=== PATIENT | male | born 1965 | race American Indian/Alaskan Native ===

== ENCOUNTER 2017-06-28 12:25 | Emergency (ER) | payer SELFPAY ==
[2017-06-28 12:59] VITALS: BP 140/94
[2017-06-28] MEDS ORDERED: NACL 0.9% 1000 ML 1,000 ML IV ONE (13:53)
[2017-06-28] MEDS ORDERED: PEPCID IV ONE (13:53)
[2017-06-28] MEDS ORDERED: BENADRYL IV ONE (13:53)
--- NOTE | 2017-06-28 14:01 | Emergency Department Report ---
- General Chief complaint: Skin Rash Stated complaint: POSSIBLE ALLERGIC REACTION Time Seen by Provider: 06/28/17 13:07 Source: patient Mode of arrival: Ambulatory Limitations: No Limitations - History of Present Illness Initial comments: This is a 52-year-old male nontoxic, well nourished in appearance, no acute signs of distress presents to the ED with c/o of multiple pruritic scaby rash 1 week. He stated last week he saw a bedbug and killed and that has been increasing and rash. Patient presents with multiple scaby rash with multiple non scaby rashes. Patient describes rash as pruritic. Denies any fever, chills , headache, shortness of breathe, numbness, tingling, stiff neck. Patient denies any sick contact. Denies any drug allergies or PMH. complaint: rash -: week(s) (1) Location: generalized Severity: mild Severity scale (0 -10): 8 Quality: other (itching) Consistency: constant Improves with: none Worsens with: none Context: none Associated symptoms: denies other symptoms Treatments Prior to Arrival: none - Related Data Previous Rx's Medication Instructions Recorded Last Taken Type Triamcinolone Aceton 0.1% (Nf) 1 applic TP BID #1 tube 06/28/17 Unknown Rx [Kenalog (NF)] Allergies Allergy/AdvReac Type Severity Reaction Status Date / Time No Known Allergies Allergy Verified 06/28/17 12:58 Abscess Boil HPI - HPI Chief Complaint: Skin Rash Stated Complaint: POSSIBLE ALLERGIC REACTION Time Seen by Provider: 06/28/17 13:07 Home Medications: Previous Rx's Medication Instructions Recorded Last Taken Type Triamcinolone Aceton 0.1% (Nf) 1 applic TP BID #1 tube 06/28/17 Unknown Rx [Kenalog (NF)] Allergies/Adverse Reactions: Allergies Allergy/AdvReac Type Severity Reaction Status Date / Time No Known Allergies Allergy Verified 06/28/17 12:58 ED Review of Systems ROS: Stated complaint: POSSIBLE ALLERGIC REACTION Other details as noted in HPI Constitutional: denies: chills, fever Eyes: denies: eye pain, eye discharge, vision change ENT: denies: ear pain, throat pain Respiratory: denies: cough, shortness of breath, wheezing Cardiovascular: denies: chest pain, palpitations Endocrine: no symptoms reported Gastrointestinal: denies: abdominal pain, nausea, diarrhea Genitourinary: denies: urgency, dysuria Musculoskeletal: denies: back pain, joint swelling, arthralgia Skin: rash. denies: lesions Neurological: denies: headache, weakness, paresthesias Psychiatric: denies: anxiety, depression Hematological/Lymphatic: denies: easy bleeding, easy bruising ED Past Medical Hx - Past Medical History Previous Medical History?: No - Surgical History Past Surgical History?: No - Social History Smoking Status: Current Every Day Smoker Substance Use Type: Alcohol - Medications Home Medications: Home Medications Medication Instructions Recorded Confirmed Last Taken Type Triamcinolone Aceton 0.1% (Nf) 1 applic TP BID #1 tube 06/28/17 Unknown Rx [Kenalog (NF)] ED Physical Exam - General Limitations: No Limitations General appearance: alert, in no apparent distress - Head Head exam: Present: atraumatic, normocephalic - Eye Eye exam: Present: normal appearance, PERRL, EOMI Pupils: Present: normal accommodation - ENT ENT exam: Present: normal exam, normal orophraynx, mucous membranes moist, TM's normal bilaterally, normal external ear exam - Neck Neck exam: Present: normal inspection, full ROM. Absent: tenderness, meningismus, lymphadenopathy, thyromegaly - Respiratory Respiratory exam: Present: normal lung sounds bilaterally. Absent: respiratory distress, wheezes, rales, rhonchi, stridor, chest wall tenderness, accessory muscle use, decreased breath sounds, prolonged expiratory - Cardiovascular Cardiovascular Exam: Present: regular rate, normal rhythm, normal heart sounds. Absent: bradycardia, tachycardia, irregular rhythm, systolic murmur, diastolic murmur, rubs, gallop - GI/Abdominal GI/Abdominal exam: Present: soft, normal bowel sounds. Absent: distended, tenderness, guarding, rebound, rigid, diminished bowel sounds - Rectal Rectal exam: Present: deferred - Extremities Exam Extremities exam: Present: normal inspection, full ROM, normal capillary refill. Absent: tenderness, pedal edema, joint swelling, calf tenderness - Back Exam Back exam: Present: normal inspection, full ROM. Absent: tenderness, CVA tenderness (R), CVA tenderness (L), muscle spasm, paraspinal tenderness, vertebral tenderness, rash noted - Neurological Exam Neurological exam: Present: alert, oriented X3, CN II-XII intact, normal gait, reflexes normal - Psychiatric Psychiatric exam: Present: normal affect, normal mood - Skin Skin exam: Present: warm, dry, intact, normal color, rash, erythema - Expanded Skin Exam Expanded Type of lesion: Present: bite/sting Distribution of rash: generalized Description of rash: Present: erythematous, papular, other (multiple erythematous papules on the trunk with a central hemorrhagic punctum with some old crusting noted. ) ED Course Vital Signs 06/28/17 12:56 Temperature 98.7 F Pulse Rate 64 Respiratory 16 Rate Blood Pressure 140/94 O2 Sat by Pulse 100 Oximetry - Reevaluation(s) Reevaluation #1: 06/28/17 14:06 Patient is speaking in full sentences with no signs of distress noted. ED Medical Decision Making - Medical Decision Making This is a 52-year-old male that presents with bed bug bites. Patient was examined by me and patient is stable. Patient recevied Normal saline 1L with Pepcid, Solu-Medrol, and Benadryl IV for pruritic rash and patient was instructed not to operate any machinery after discharged as to drowsiness with Benadryl and patient stated his family member will drive the patient home at d/ c. Patient is d/c with triamcinolone acetonide 0.1% cream at d/c. Patient was instrcuted to maintain good hygine and avoid scartching to prevent infection. He was instructed to observe symptoms of infection such as cellulitis and return to the ED if present as soon as possible for proper antibiotics. Patient received [employer] education on bedbugs and what to do at home (https:// [email or web address]_link). Patient was instructed to Follow-up with a primary care doctor in 3-5 days or if symptoms worsen and continue return to emergency room as soon as possible. At time time of discharge, the patient does not seem toxic or ill in appearance. No acute signs of distress noted. Patient agrees to discharge treatment plan of care. No further questions noted by the patient. Critical care attestation.: If time is entered above; I have spent that time in minutes in the direct care of this critically ill patient, excluding procedure time. ED Disposition Clinical Impression: Bed bug bite Qualifiers: Encounter type: initial encounter Qualified Code(s): W57.XXXA - Bitten or stung by nonvenomous insect and other nonvenomous arthropods, initial encounter Disposition: DC-01 TO HOME OR SELFCARE Is pt being admited?: No Does the pt Need Aspirin: No Condition: Stable Instructions: Insect Bite or Sting (ED), Triamcinolone (On the skin) Additional Instructions: Follow-up with a primary care doctor in 3-5 days or if symptoms worsen and continue return to emergency room as soon as possible. Prescriptions: Triamcinolone Aceton 0.1% (Nf) [Kenalog (NF)] 1 applic TP BID #1 tube Referrals: PRIMARY CARE, [Primary Care Provider] - 3-5 Days RAISA URIAS MD [Staff Physician] - 3-5 Days [facility] [Outside] - 3-5 Days [facility] [Outside] - 3-5 Days Forms: Work/School Release Form(ED)
== END 2017-06-28 15:27 | disposition home or self-care (01) ==
LOC: ED 12:25
DX: R21 Rash and other nonspecific skin eruption (principal); L29.9 Pruritus, unspecified
CPT/HCPCS: 96361; 96374; 96375; 99282; J1200; J2930; J7030

== ENCOUNTER 2019-03-20 11:49 | Emergency (ER) | payer OTHER ==
--- NOTE | 2019-03-20 12:09 | Event Note ---
ED Screening Note Date of service: 03/20/19 Time: 12:08 ED Screening Note: 54 y/o male comes in blood on toilet paper. Never follow up with a GI. Was diagnosed with hemorrhoid was given annusol. This initial assessment/diagnostic orders/clinical plan/treatment(s) is/are subject to change based on patients health status, clinical progression and re- assessment by fellow clinical providers in the ED. Further treatment and workup at subsequent clinical providers discretion. Patient/guardian urged not to elope from the ED as their condition may be serious if not clinically assessed and managed. Initial orders include:
[2019-03-20 12:15] VITALS: BP 156/95
[2019-03-20 13:47] LABS: Basophils # (Auto) 0.1 K/mm3 (0.0-0.1); Basophils % (Auto) 0.9 % (0.0-1.8); Eosinophils # (Auto) 0.2 K/mm3 (0.0-0.4); Eosinophils % (Auto) 2.1 % (0.0-4.3); Hematocrit 48.9 % (35.5-45.6); Hemoglobin 16.7 gm/dl (11.8-15.2); Lymphocytes # (Auto) 1.6 K/mm3 (1.2-5.4); Lymphocytes % (Auto) 21.5 % (13.4-35.0); Mean Corpuscular HGB Conc 34 % (32-34); Mean Corpuscular Volume 89 fl (84-94); Monocytes # (Auto) 0.7 K/mm3 (0.0-0.8); Platelet Count 256 K/mm3 (140-440); Red Blood Count 5.51 M/mm3 (3.65-5.03); Red Cell Distribution Width 14.2 % (13.2-15.2)
[2019-03-20 14:09] LABS: INR 0.91 (0.87-1.13); Partial Thromboplastin Time 26.3 Sec. (24.2-36.6)
[2019-03-20 14:11] LABS: Alanine Aminotransferase 30 units/L (7-56); Albumin 4.3 g/dL (3.9-5); BUN/Creatinine Ratio 19; Blood Urea Nitrogen 17 mg/dL (9-20); Calcium 9.4 mg/dL (8.4-10.2); Hemolysis Index 21
--- NOTE | 2019-03-20 14:19 | Emergency Department Report ---
ED GI Bleed HPI - General Chief complaint: GI Bleed Stated complaint: BLOOD IN STOOL Time Seen by Provider: 03/20/19 12:07 Source: patient Mode of arrival: Ambulatory Limitations: No Limitations - History of Present Illness Initial comments: Patient is 54 years old male with no significant past medical history. Patient presented to the ER complaining of blood on toilet paper when he used the bathroom. Patient stated the symptoms started to 6 month ago. He was told that he has a hemorrhoid. Patient denied any loss of weight, no anoxia, nausea vom iting. MD complaint: blood on toilet paper -: month(s) (6) Radiation: none - Related Data Previous Rx's Medication Instructions Recorded Last Taken Type Triamcinolone Aceton 0.1% (Nf) 1 applic TP BID #1 tube 06/28/17 Unknown Rx [Kenalog (NF)] Amoxicillin/K Clav Tab [Augmentin 1 tab PO Q12HR #20 tab 07/08/18 Unknown Rx 875MG TAB] Cetirizine HCl [ZyrTEC] 10 mg PO QAM 14 Days #14 capsule 07/08/18 Unknown Rx Fluticasone [Flonase] 1 spray NS QDAY 14 Days #1 bottle 07/08/18 Unknown Rx Ibuprofen [Motrin] 800 mg PO Q8HR PRN #15 tablet 07/08/18 Unknown Rx guaiFENesin/CODEINE [Robitussin AC] 10 ml PO QHS PRN #70 oral.liqd 07/08/18 Unknown Rx ALBUTEROL Inhaler (OR & NICU) 1 puff IH Q4-6H PRN #1 inha 08/02/18 Unknown Rx [ProAir HFA Inhaler] Benzonatate [Tessalon Perles] 100 mg PO Q8HR #20 capsule 08/02/18 Unknown Rx Montelukast [Singulair] 10 mg PO QPM #14 tablet 08/02/18 Unknown Rx predniSONE [Deltasone] 50 mg PO QDAY #5 tab 08/02/18 Unknown Rx Hydrocortisone [Anucort-HC SUPPOS] 25 mg RC BID #10 supp.rect 12/04/18 Unknown Rx Allergies Allergy/AdvReac Type Severity Reaction Status Date / Time shellfish derived Allergy Itching Verified 07/08/18 13:01 ED Review of Systems ROS: Stated complaint: BLOOD IN STOOL Other details as noted in HPI Comment: All other systems reviewed and negative Constitutional: denies: chills, fever Respiratory: denies: cough, shortness of breath, SOB with exertion Gastrointestinal: denies: abdominal pain, nausea ED Past Medical Hx - Past Medical History Previous Medical History?: No - Surgical History Past Surgical History?: No - Social History Smoking Status: Never Smoker Substance Use Type: None - Medications Home Medications: Home Medications Medication Instructions Recorded Confirmed Last Taken Type Triamcinolone Aceton 0.1% (Nf) 1 applic TP BID #1 tube 06/28/17 Unknown Rx [Kenalog (NF)] Amoxicillin/K Clav Tab [Augmentin 1 tab PO Q12HR #20 tab 07/08/18 Unknown Rx 875MG TAB] Cetirizine HCl [ZyrTEC] 10 mg PO QAM 14 Days #14 capsule 07/08/18 Unknown Rx Fluticasone [Flonase] 1 spray NS QDAY 14 Days #1 bottle 07/08/18 Unknown Rx Ibuprofen [Motrin] 800 mg PO Q8HR PRN #15 tablet 07/08/18 Unknown Rx guaiFENesin/CODEINE [Robitussin AC] 10 ml PO QHS PRN #70 oral.liqd 07/08/18 Unknown Rx ALBUTEROL Inhaler (OR & NICU) 1 puff IH Q4-6H PRN #1 inha 08/02/18 Unknown Rx [ProAir HFA Inhaler] Benzonatate [Tessalon Perles] 100 mg PO Q8HR #20 capsule 08/02/18 Unknown Rx Montelukast [Singulair] 10 mg PO QPM #14 tablet 08/02/18 Unknown Rx predniSONE [Deltasone] 50 mg PO QDAY #5 tab 08/02/18 Unknown Rx Hydrocortisone [Anucort-HC SUPPOS] 25 mg RC BID #10 supp.rect 12/04/18 Unknown Rx ED Physical Exam - General Limitations: No Limitations General appearance: alert, in no apparent distress - Head Head exam: Present: atraumatic, normocephalic, normal inspection - Eye Eye exam: Present: normal appearance - ENT ENT exam: Present: normal exam, normal orophraynx, mucous membranes moist - Neck Neck exam: Present: normal inspection, full ROM. Absent: tenderness, meningismus - Respiratory Respiratory exam: Present: normal lung sounds bilaterally - Cardiovascular Cardiovascular Exam: Present: normal heart sounds - GI/Abdominal GI/Abdominal exam: Present: soft, normal bowel sounds. Absent: distended, tenderness, guarding, rebound, rigid, organomegaly, mass, bruit, pulsatile mass, hernia - Rectal Rectal exam: Present: normal inspection, normal rectal tone, heme (-) stool. Absent: fecal impaction, hemorrhoids - Extremities Exam Extremities exam: Present: normal inspection, full ROM, normal capillary refill - Neurological Exam Neurological exam: Present: alert, oriented X3, CN II-XII intact, normal gait, reflexes normal - Skin Skin exam: Present: warm, intact, normal color ED Course Vital Signs 03/20/19 12:08 Temperature 98.4 F Pulse Rate 77 Blood Pressure 156/95 O2 Sat by Pulse 98 Oximetry ED Medical Decision Making - Lab Data Result diagrams: 03/20/19 13:36 03/20/19 13:36 - Medical Decision Making Patient is 54 years old male with no significant past medical history. Patient presented to the ER complaining of blood on toilet paper when he used the bathroom. Patient stated the symptoms started to 6 month ago. He was told that he has a hemorrhoid. Patient denied any loss of weight, no anoxia, nausea vomiting. Patient urobilinogen is 16. Patient's symptoms most likely related to anal fissure. Possibility of colon cancer is raised with the patient and strongly advised to follow-up with his GI doctor for colonoscopy. Patient given [facility]-for follow-up. Patient also advised to return to the ER if symptoms get worse. Critical care attestation.: If time is entered above; I have spent that time in minutes in the direct care of this critically ill patient, excluding procedure time. ED Disposition Clinical Impression: GI bleed Disposition: DC-01 TO HOME OR SELFCARE Is pt being admited?: No Condition: Stable Instructions: Rectal Bleeding (ED) Referrals: NAHID LOPEZ MD [Primary Care Provider] - 3-5 Days [facility] [Provider Group] - 3-5 Days Forms: Accompanied Note, Work/School Release Form(ED)
== END 2019-03-20 14:45 | disposition home or self-care (01) ==
LOC: ED 11:49
DX: K92.1 Melena (principal); Z91.018 Allergy to other foods; Z79.899 Other long term (current) drug therapy
CPT/HCPCS: 36415; 80053; 85025; 85610; 85730

== ENCOUNTER 2020-06-13 07:36 | Emergency (ER) | payer SELFPAY ==
[2020-06-13 07:47] VITALS: BP 140/96
--- NOTE | 2020-06-13 08:13 | Emergency Department Report ---
Chief Complaint: Nosebleed Stated Complaint: NOSE BLEED Time Seen by Provider: 06/13/20 08:09 - HPI History of Present Illness: The patient was evaluated in the emergency department for symptoms described in the history of present illness. He/she was evaluated in the context of the global COVID-19 pandemic, which necessitated consideration that the patient might be at risk for infection with the virus that causes COVID-19. Institutional protocols and algorithms that pertain to the evaluation of patients at risk for COVID-19 are in a state of rapid change based on information released by regulatory bodies including the CDC and federal and state organizations. These policies and algorithms were followed during the patient's care in the emergency department. Please note that these policies, procedures and recommendations changed on a rapid basis. 55-year-old -[place] male presents to the emergency room for intermittent nosebleeding with the last one yesterday. Patient reports no nosebleeding today. He denies any headache shortness of breathing dizziness - Exam Vital Signs: Vital Signs 06/13/20 07:42 Temperature 98.6 F Pulse Rate 80 Respiratory 14 Rate Blood Pressure 140/96 O2 Sat by Pulse 97 Oximetry Physical Exam: Patient is alert and oriented x3 no acute distress nontoxic in appearance HEENT: Bilateral nares are patent no active bleeding mouth hypertrophic of the inferior turbinates. Oral mucosa is moist no active post nasal bleeding. Nonlabored breathing no accessory muscles used Ambulatory without difficulties. MSE screening note: Focused history and physical exam performed. Due to findings the following was ordered: 55-year-old -[place] male presents to the emergency room for intermittent nosebleeding with the last one yesterday. Patient reports no nosebleeding today. He denies any headache shortness of breathing dizziness Discussed with patient he is to follow-up with his primary care provider or an hoop maker. Patient verbalized understanding ED Medical Decision Making - Medical Decision Making 55-year-old -[place] male presents to the emergency room for intermittent nosebleeding with the last one yesterday. Patient reports no nosebleeding today. He denies any headache shortness of breathing dizziness Patient currently has no active nosebleed at this time. Instructed patient to follow-up with the primary care provider and hoop maker. ED Disposition for MSE Disposition: MED SCREENING EXAM-LEFT Is pt being admited?: No Does the pt Need Aspirin: No Condition: Stable Additional Instructions: Recommend to follow-up with a primary care provider and/or swine genetics researcher which is also called to hoop maker. Please avoid picking nose he can also use normal saline or Afrin twice a day for the next 3 days to help with the intermittent nosebleeding. Referrals: ANNETTA SHER MD [Staff Physician] - 3-5 Days FABIAN CASTELLANOS MD [Staff Physician] - 3-5 Days Forms: Work/School Release Form(ED)
== END 2020-06-13 08:18 | disposition left against medical advice (07) ==
LOC: ED 07:36
DX: R04.0 Epistaxis (principal); Z53.21 Procedure and treatment not carried out due to patient leaving prior to being seen by health care provider

== ENCOUNTER 2021-01-23 05:40 | Emergency (ER) | payer OTHER ==
[2021-01-23 06:35] VITALS: BP 122/74
[2021-01-23] MEDS ORDERED: ACETAMINOPHEN 325 MG TAB PO ONE (08:07)
[2021-01-23] MEDS ORDERED: IBUPROFEN 400 MG TAB PO ONE (08:07)
--- NOTE | 2021-01-23 08:07 | Emergency Department Report ---
ED General Adult HPI - General Chief complaint: Extremity Injury, Upper Stated complaint: LT LEG PAIN/KNOT ON LT ARM X3 MTHS PUI?: No Time Seen by Provider: 01/23/21 07:31 Source: patient, RN notes reviewed, old records reviewed Mode of arrival: Ambulatory Limitations: No Limitations - History of Present Illness Initial comments: The patient was evaluated in the emergency department for symptoms described in the history of present illness. He/she was evaluated in the context of the global COVID-19 pandemic, which necessitated consideration that the patient might be at risk for infection with the virus that causes COVID-19. Institutional protocols and algorithms that pertain to the evaluation of patients at risk for COVID-19 are in a state of rapid change based on information released by regulatory bodies including the CDC and federal and state organizations. These policies and algorithms were followed during the saurabh ta's care in the emergency department. Please note that these policies, procedures and recommendations changed on a rapid basis. During the history and physical examination, I am chaperoned by nurse Aniyah Reeves The patient is a 55-year-old gentleman. He is right-hand dominant. 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 The patient presents to the ER with 2 complaints. His first complaint is nontraumatic left-sided inguinal and proximal thigh pain and discomfort for 6 to 8 months. The pain is aching, throbbing, increases with palpation and range of motion, decreases with rest, and does not radiate anywhere. There is no trauma, there is no weakness or numbness, no redness, pus or streaking, no penetrating injury, the patient has not attempted any analgesia. His next complaint is nontraumatic left proximal/dorsal forearm swelling, just distal to the antecubital fossa, intermittently for months. Has not radiated anywhere, no trauma, increases with palpation, decreases with rest, endorses repetitive range of movements and range of motion of the left upper extremity, has not attempted any analgesia [id number]. Denies headache, neck pain, chest pain, abdominal pain, shortness of breath, Covid symptoms, testicular pain, and dysuria. -: month(s) Location: left (Left dorsal proximal forearm), lower extremity (Left proximal thigh/groin, medial) Radiation: non-radiation Severity scale (0 -10): 4 Quality: aching Consistency: intermittent Improves with: rest Worsens with: movement Associated Symptoms: denies other symptoms - Related Data Previous Rx's Medication Instructions Recorded Last Taken Type Triamcinolone Aceton 0.1% (Nf) 1 applic TP BID #1 tube 06/28/17 Unknown Rx [Kenalog (NF)] Amoxicillin/K Clav Tab [Augmentin 1 tab PO Q12HR #20 tab 07/08/18 Unknown Rx 875MG TAB] Cetirizine HCl [ZyrTEC] 10 mg PO QAM 14 Days #14 capsule 07/08/18 Unknown Rx Fluticasone [Flonase] 1 spray NS QDAY 14 Days #1 bottle 07/08/18 Unknown Rx Ibuprofen [Motrin] 800 mg PO Q8HR PRN #15 tablet 07/08/18 Unknown Rx Albuterol Mdi (or & Nicu Only) 1 puff IH Q4-6H PRN #1 inha 08/02/18 Unknown Rx [ProAir HFA Inhaler] Benzonatate [Tessalon Perles] 100 mg PO Q8HR #20 capsule 08/02/18 Unknown Rx Montelukast [Singulair] 10 mg PO QPM #14 tablet 08/02/18 Unknown Rx predniSONE [Deltasone] 50 mg PO QDAY #5 tab 08/02/18 Unknown Rx Ondansetron [Zofran Odt] 4 mg PO Q8HR PRN #14 tab.rapdis 03/20/19 Unknown Rx Acetaminophen [Non-Aspirin Extra 500 mg PO Q6HR PRN #30 tablet 01/23/21 Unknown Rx Strength] Ibuprofen [Motrin] 600 mg PO Q8H PRN #30 tablet 01/23/21 Unknown Rx Allergies Allergy/AdvReac Type Severity Reaction Status Date / Time shellfish derived Allergy Itching Verified 07/08/18 13:01 ED Review of Systems ROS: Stated complaint: LT LEG PAIN/KNOT ON LT ARM X3 MTHS Other details as noted in HPI Comment: All other systems reviewed and negative Musculoskeletal: arthralgia, myalgia ED Past Medical Hx - Past Medical History Previous Medical History?: No - Surgical History Past Surgical History?: No - Social History Smoking Status: Current Every Day Smoker Substance Use Type: None - Medications Home Medications: Home Medications Medication Instructions Recorded Confirmed Last Taken Type Triamcinolone Aceton 0.1% (Nf) 1 applic TP BID #1 tube 06/28/17 Unknown Rx [Kenalog (NF)] Amoxicillin/K Clav Tab [Augmentin 1 tab PO Q12HR #20 tab 07/08/18 Unknown Rx 875MG TAB] Cetirizine HCl [ZyrTEC] 10 mg PO QAM 14 Days #14 capsule 07/08/18 Unknown Rx Fluticasone [Flonase] 1 spray NS QDAY 14 Days #1 bottle 07/08/18 Unknown Rx Ibuprofen [Motrin] 800 mg PO Q8HR PRN #15 tablet 07/08/18 Unknown Rx Albuterol Mdi (or & Nicu Only) 1 puff IH Q4-6H PRN #1 inha 08/02/18 Unknown Rx [ProAir HFA Inhaler] Benzonatate [Tessalon Perles] 100 mg PO Q8HR #20 capsule 08/02/18 Unknown Rx Montelukast [Singulair] 10 mg PO QPM #14 tablet 08/02/18 Unknown Rx predniSONE [Deltasone] 50 mg PO QDAY #5 tab 08/02/18 Unknown Rx Ondansetron [Zofran Odt] 4 mg PO Q8HR PRN #14 tab.rapdis 03/20/19 Unknown Rx Acetaminophen [Non-Aspirin Extra 500 mg PO Q6HR PRN #30 tablet 01/23/21 Unknown Rx Strength] Ibuprofen [Motrin] 600 mg PO Q8H PRN #30 tablet 01/23/21 Unknown Rx ED Physical Exam - General Limitations: No Limitations, Other (Chaperoned by nurse Aniyah Reeves) General appearance: alert, in no apparent distress - Head Head exam: Present: atraumatic, normocephalic - Eye Eye exam: Present: normal appearance, EOMI. Absent: nystagmus - ENT ENT exam: Present: normal exam, normal orophraynx, mucous membranes moist, normal external ear exam - Neck Neck exam: Present: normal inspection, full ROM. Absent: tenderness, meningismus - Respiratory Respiratory exam: Present: normal lung sounds bilaterally. Absent: respiratory distress, wheezes, rales, rhonchi, stridor, decreased breath sounds - Cardiovascular Cardiovascular Exam: Present: regular rate, normal rhythm, normal heart sounds. Absent: bradycardia, tachycardia, irregular rhythm, systolic murmur, diastolic murmur, rubs, gallop - GI/Abdominal GI/Abdominal exam: Present: soft. Absent: distended, tenderness, guarding, rebound, rigid, pulsatile mass - Rectal Rectal exam: Present: deferred - Extremities Exam Extremities exam: Present: normal inspection, full ROM (Patient has minimal discomfort with active and passive internal and external rotation of the left hip and thigh. There is no redness, pus, streaking or tenderness over the left hip or thigh.), tenderness (On the left proximal forearm, volar surface, distal to the antecubital fossa, there is a well-circumscribed indurated, minimally tender, nonfluctuant, nonred/erythematous, 1.5 x 1.5 cm area. There is no pus or streaking. There is no crepitus.), other (2+ pulses noted in the bilateral upper and lower extremities. There is no palpable cord. negative Homans sign. Muscular compartments are soft. The pelvis is stable.) - Back Exam Back exam: Present: normal inspection. Absent: tenderness, CVA tenderness (R), CVA tenderness (L), paraspinal tenderness, vertebral tenderness - Neurological Exam Neurological exam: Present: alert, oriented X3, normal gait, other (No facial droop. Tongue midline. Extraocular movements intact bilaterally. Facial sensation intact to light touch in V1, V2, V3 distribution bilaterally. 5 and a 5 strength in 4 extremities. Sensation intact to light touch in 4 extremities.). Absent: motor sensory deficit - Psychiatric Psychiatric exam: Present: normal affect, normal mood - Skin Skin exam: Present: warm, dry, intact, normal color. Absent: rash ED Course Vital Signs 01/23/21 01/23/21 06:33 08:20 Temperature 98.3 F Pulse Rate 79 Respiratory 18 15 Rate Blood Pressure 122/74 [Left] O2 Sat by Pulse 98 Oximetry ED Medical Decision Making - Lab Data Vital Signs 01/23/21 01/23/21 06:33 08:20 Temperature 98.3 F Pulse Rate 79 Respiratory 18 15 Rate Blood Pressure 122/74 [Left] O2 Sat by Pulse 98 Oximetry - Medical Decision Making Differential diagnosis, including but not limited to, arthritis, sprain, strain, capsulitis, hematoma, overuse injury, soft tissue injury Assessment and plan: 55-year-old gentleman, who is afebrile with reassuring vital signs with 2 complaints. Complaint #1, left groin and hip pain, reproducible with internal and external rotation, with no redness, pus or streaking, who ambulates with a steady gait, with no indication of trauma. Suspect arthritis versus a soft tissue injury. Rest, ice, compression, elevation, Tylenol, ibuprofen, outpatient physical therapy, rehabilitation and/or primary care/orthopedics follow-up. No indication for emergent imaging at this time. Complaints #2, left proximal volar forearm pain and swelling, intermittent, for months, minimally indurated, however, no redness, pus, streaking, tenderness or crepitus, neurovascularly intact, suspect tendinopathy versus overuse injury. Rest, ice, compression, elevation, Tylenol, ibuprofen, outpatient follow-up for physical therapy and/or rehab. Return precautions are reviewed. Extensively discussed this plan of care with the patient. He is articulated understanding. His examination and history at this time are not suggestive of invasive infection, compartment syndrome, neurovascular compromise, fracture, dislocatio n, or any emergent condition. He does have full active and passive range of motion of the bilateral upper and lower extremities. Critical care attestation.: If time is entered above; I have spent that time in minutes in the direct care of this critically ill patient, excluding procedure time. ED Disposition Clinical Impression: Left forearm pain, Left hip pain Disposition: TO HOME OR SELFCARE Is pt being admited?: No Does the pt Need Aspirin: No Condition: Good Instructions: Hip Pain, Musculoskeletal Pain, How to Use Cold Therapy Additional Instructions: Please take the prescribed pain medications as needed and directed. Alternate ice packs and heat packs as needed for relief of physical pain. As we discussed, we suspect that the patient is experiencing either left hip arthritis, or soft tissue injury to the left hip and groin. Rest, ice, compression, elevation, pain medication, outpatient physical therapy for rehabilitation. The patient may follow-up with a primary care doctor or orthopedist to coordinate these aforementioned recommendations. Dr. Ceballos is a local orthopedist. [facility] is a local orthopedic group. [facility] is a local primary care clinic. Dr. Smiley Flores is a local primary care doctor. We suspect that the patient has a tendon injury or overuse injury to the left proximal/volar forearm. Similar recommendations as above. Please follow-up with your primary care doctor or orthopedist. Avoid heavy lifting and excessively strenuous physical activity. Please return to the emergency room right away with new pain, worsened pain, migration of pain, projectile vomiting, change in mental status, confusion, inability to tolerate liquid feeds, new, worsened or different symptoms not present on the initial emergency room evaluation Referrals: JALEEL CEBALLOS MD [Staff Physician] - 3-5 Days ANNETTA FLORES MD [Staff Physician] - 3-5 Days [facility] [Provider Group] - 3-5 Days [facility] [Provider Group] - 3-5 Days Forms: Work/School Release Form(ED)
== END 2021-01-23 08:59 | disposition home or self-care (01) ==
LOC: ED 05:40
DX: M79.632 Pain in left forearm (principal); M25.552 Pain in left hip; F17.200 Nicotine dependence, unspecified, uncomplicated; Z79.1 Long term (current) use of non-steroidal anti-inflammatories (NSAID); Z79.899 Other long term (current) drug therapy; Z91.013 Allergy to seafood
CPT/HCPCS: 99282